=== PATIENT | male | born 1940 | race Hispanic/Latino ===

== ENCOUNTER 2017-12-26 19:16 | Emergency (ER) | payer OTHER, SELFPAY ==
[2017-12-26 19:27] VITALS: BP 197/95; PULSE 72; RESP 20; TEMP 36.3; O2SAT 98
--- NOTE | 2017-12-26 19:35 | DI.RAD.S_ITS ---
PROCEDURE: XR RIBS RT MIN 3V W CXR 1V INDICATIONS: blunt injury TECHNIQUE: 3 views of the right ribs were acquired, along with a single view chest. COMPARISON: None. FINDINGS: Surgical changes and devices: None. Bones and chest wall: No fractures or dislocations. No suspicious bony lesions. Overlying soft tissues appear unremarkable. Lungs and pleura: No pleural effusions or pneumothorax. Lungs appear clear. Mediastinum: Mediastinal contours appear normal. Heart size is normal. IMPRESSION: No displaced right rib fractures visualized. Dictated by: Devyn Yen M.D. on 12/26/2017 at 20:35 Approved by: Devyn Yen M.D. on 12/26/2017 at 20:37
[2017-12-26 21:53] VITALS: BP 180/80; PULSE 68; RESP 18; O2SAT 99
[2017-12-26 23:38] VITALS: BP 167/84; PULSE 62; RESP 16; O2SAT 99
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
== END 2017-12-27 00:31 | disposition home or self-care (01) ==
PROVIDERS: Emergency Provider Emergency Medicine; Family Provider Family Medicine; PCP Family Medicine
DX: S20.229A Contusion of unspecified back wall of thorax, initial encounter (principal); V09.00XA Pedestrian injured in nontraffic accident involving unspecified motor vehicles, initial encounter
CPT/HCPCS: 71101; 99283

== ENCOUNTER → 2018-03-04 12:14 | Outpatient (CLI) | payer OTHER, SELFPAY ==
--- NOTE | 2018-03-04 | DI.CT.S_ITS ---
PROCEDURE: CT CHEST ABD PEL W CON INDICATIONS: PROSTATE CANCER TECHNIQUE: After the administration of oral and intravenous contrast, 5 mm thick sections acquired from the lung apices to the symphysis. 5 mm coronal and sagittal reformats were performed, with additional 7 mm coronal MIP reformats through the lungs. For radiation dose reduction, the following was used: automated exposure control, adjustment of mA and/or kV according to patient size. COMPARISON: [facility], CR, XR RIBS RT MIN 3V W CXR 1V, 12/26/2017, 19:37. FINDINGS: Image quality: Excellent. CHEST: Lungs and pleura: There is apical opacity with partial calcification, probably scar/atelectasis. No acute airspace opacities. No pleural effusions or pneumothorax. Central and peripheral airways appear patent and normal in caliber. Mediastinum: Heart size is normal. No pericardial effusion. No mediastinal or hilar adenopathy by size criteria. Thoracic aorta and central pulmonary arteries are normal in size. Esophagus is normal in caliber. No hiatal hernia. Chest wall: No axillary or supraclavicular adenopathy by size criteria. Thyroid gland is normal. ABDOMEN: Solid organs: There is diffuse hepatic fatty fixation. Liver is normal in size and enhancement. Gallbladder is normal. Biliary system is non dilated. Pancreas enhances normally. Spleen is normal in size and enhancement. No adrenal nodules. Kidneys demonstrate normal size and enhancement, without hydronephrosis. Peritoneum and bowel: There is masslike appearance in duodenum. Bowel loops demonstrate normal wall thickness and caliber. There are scattered colonic diverticula. No arthritic diverticulitis. No free fluid or air. Nodes and vessels: No retroperitoneal or mesenteric adenopathy by size criteria. Aorta and inferior vena cava are normal in size. Mild aortic atherosclerosis. Miscellaneous: No ventral hernias. PELVIS: Genitourinary: Bladder wall thickness is normal. Prostate is enlarged. Miscellaneous: No inguinal hernias or adenopathy. Hydroceles are seen bilaterally in the scrotum. Bones: Bilateral acute/subacute nondisplaced rib fractures are present, involving the 11th and 12th ribs and the left 10th rib.. No suspicious bony lesions. No vertebral body compression fractures. IMPRESSION: 1. Enlarged prostate. 2. No metastatic disease is identified. 3. Masslike appearance in duodenum. Recommend upper endoscopy for further evaluation. 4. Diverticulosis without acute diverticulitis. 5. Hydroceles in scrotum. 6. Bilaterally acute/subacute inferior rib fractures. 7. Hepatic steatosis. Dictated by: Devyn Yen M.D. on 03/04/2018 at 15:58 Approved by: Devyn Yen M.D. on 03/04/2018 at 18:10
== END ==
PROVIDERS: Family Provider Family Medicine; PCP Family Medicine; Visit Provider Urology
DX: C61 Malignant neoplasm of prostate (principal); K31.9 Disease of stomach and duodenum, unspecified; K57.90 Diverticulosis of intestine, part unspecified, without perforation or abscess without bleeding; N43.3 Hydrocele, unspecified; S22.43XA Multiple fractures of ribs, bilateral, initial encounter for closed fracture; K76.0 Fatty (change of) liver, not elsewhere classified
CPT/HCPCS: 71260; 74177; Q9967

== ENCOUNTER 2019-01-08 10:45 | Outpatient (RCR) | payer OTHER, SELFPAY ==
--- NOTE | 2018-10-22 17:22 | PT.OIE ---
Current Diagnoses Malignant neoplasm of prostate (10/17/18) Stress incontinence (female) (male) (10/17/18) Provider Visit Care Team Role Provider Type Christophe Hawthorne Primary Care Provider Non-Staff Specialty: Medical Address: [place], [address] Email: Davon Angel Attending Provider Non-Staff Specialty: Urology Address: [facility] [place], [address] Email: Physical Therapy Initial Evaluation PT-OP-A Visit Information Start: 10/17/18 10:32 Freq: Status: Active Protocol: Document 10/17/18 10:30 [facility] (Rec: 10/17/18 19:28 [facility] [email or web address]) Out-Patient Physical Therapy Visit Information Visit Information Visit Type Initial Evaluation Visit Start Time 10:30 Visit Stop Time 11:15 Total Visit Minutes 45 Visit Number 1 Evaluation Information Evaluation Date 10/17/18 PT-OP-B Current Condition Start: 10/17/18 10:32 Freq: Status: Active Protocol: Document 10/17/18 10:30 [facility] (Rec: 10/21/18 17:41 [facility] [email or web address]) Current Condition History of Current Condition Onset Date 06/07/2019 Current Complaints urinary stress incontinence History of Current Condition 77 year old male referred to PT for pelvic floor strengthening following a robotic prostatectomy 06/07/2018 with complaints of leaking with walking and doing his work at a [employer]. He also reports since surgery he has lost the signal from his bladder that it is time to void so he is voiding just in case every hour throughout the day. He is changing his paid 3-4 times per day and using a poise pad PT-OP-I Pelvic Floor Start: 10/17/18 10:32 Freq: Status: Active Protocol: Document 10/17/18 10:30 [facility] (Rec: 10/22/18 15:58 [facility] [email or web address]) Pelvic Floor Assessment Urine Pelvic Floor Surgery No Other Urinary Symptoms leakage with walking and with standing working as a [employer]. Star also reports he feels as if he has lost the signal to void and is emptying her bladder every hour just in case. Leakage Size Medium Leakage Cause Cough Exercise Lifting Sneeze Leaks Per Day 7 Voiding Frequency every hour Nocturia up to 3 times per night Pads Used In 24 Hours 3-4 Urine Pad Type Depends Contraction Ability Voluntary Contraction Weak Voluntary Relaxation Moderate Comments Pelvic Floor Comments pelvic floor assessment was done externally today with hand placement at the perineum and suprapubic region. Star was performing his pelvic floor with gluteal squeeze and upper abdominal wall tightness. After cueing he demonstrated improved recruitment of his pelvic floor PT-OP-M Strength Start: 10/22/18 16:46 Freq: Status: Active Protocol: Document 10/17/18 10:30 [facility] (Rec: 10/22/18 16:47 [facility] [email or web address]) Trunk Strength Trunk Manual Muscle Testing Flexion 4 Good Core Stabilization weakness of the lower core including Transverse abdominus and pelvic floor PT-OP-Q Treatments Start: 10/17/18 10:32 Freq: Status: Active Protocol: Document 10/17/18 10:30 [facility] (Rec: 10/22/18 15:58 [facility] [email or web address]) Therapeutic Exercises Supine Exercises 2 Supine Exercise Name TA facilitation with a march Side bilateral Reps/Minutes 2 x 10 reps 1 Supine Exercise Name pelvic floor long holds Side bilateral Reps/Minutes 10 second hold time 10 second rest Other Exercises 1 Other Exercise Name quadruped TA facilitation Reps/Minutes x 10 reps PT-OP-T Assessment and Plan Start: 10/17/18 10:32 Freq: Status: Active Protocol: Document 10/17/18 10:30 [facility] (Rec: 10/22/18 15:58 [facility] [email or web address]) Physical Therapy Assessment Rehab Potential Rehabilitation Potential Good Evaluation Complexity Number of Personal Factors/Comorbidities 1-2 Number of Body Systems Impaired 1-2 Clinical Presentation at Evaluation Stable Impairments Impairments Activity Tolerance Functional Activities Strength Other Impairments urinary incontinence Goals Three Impairment Nocturia up to 3 times per night Powder Room Attendant Goal (LTG) Star is able to reduce voids at night to 1xm per night for improved sleep LTG Duration 8 weeks Two Impairment Decreased pelvic floor endurance Short Term Goal (STG) Improve pelvic floor endurance from 4-5 second hold time to 10 second hold time in supine STG Duration 5 weeks One Impairment urinary leakage constant throughout the day but worse with walking/standing Short Term Goal (STG) Star is educated on anterior pelvic floor facilitation and is able to tighten his pelvic floor without posterior gluteal recruitment STG Duration 4 weeks Care Home Goal (LTG) Star reports decreased c/o leakage including being able to stand for work without leakage. He reports decreased pad use from 3-4 pads per day to 0-1 pads per day LTG Duration 8 weeks Assessment Summary Assessment Star presents to physical therapy today with c/o urinary stress incontinence s/p robotic prostatectomy 2017. He reports his greatest leakage occurs with walking and with standing as a [employer]. He also reports that he has lost his signal to void and that he is voiding every hour during the day to make sure he is emptying his bladder. He is voiding up to 3 times per night. Most of the time he wakes up dry. He does report he has been avoiding drinking water throughout the day as he is afraid of leakage. His goals are to be able to run a 5 k without leaking. With examination today Star has weakness in his pelvic floor and transverse abdominal musculature He needed education today on recruiting his anterior pelvic floor and to avoid gluteal substitution. He has limited endurance of 4-5 second hold time only. Today's visit included pelvic floor re-education on anterior pelvic floor recruitment and avoiding downward pressure onto the bladder. He tolerated this well and is a good candidate for PT. Thank you for this referral. Physical Therapy Plan Frequency and Duration Frequency of Treatment 1x/Week Duration of Treatment 8 weeks Plan of Care Start Date 10/17/18 Plan of Care End Date 12/17/18 Therapeutic Interventions Therapeutic Interventions Home Exercise Program Manual Therapy Neuromuscular Re-education Patient/Caregiver Education Self-Care/Home Management Soft Tissue Mobilization Therapeutic Exercises Next Visit Focus/Plan Next Note Type Treatment Note Next Visit Plan Review Home exercises and progress stabilization as tolerated to more upright positions
--- NOTE | 2018-12-10 09:17 | PT.OTN ---
Current Diagnoses Malignant neoplasm of prostate (12/05/18) Stress incontinence (female) (male) (12/05/18) Physical Therapy Treatment Note PT-OP-A Visit Information Start: 10/17/18 10:32 Freq: Status: Active Protocol: Document 10/17/18 10:30 [facility] (Rec: 10/17/18 19:28 [facility] [email or web address]) Out-Patient Physical Therapy Visit Information Visit Information Visit Type Initial Evaluation Visit Start Time 10:30 Visit Stop Time 11:15 Total Visit Minutes 45 Visit Number 1 Evaluation Information Evaluation Date 10/17/18 PT-OP-B Current Condition Start: 10/17/18 10:32 Freq: Status: Active Protocol: Document 10/17/18 10:30 [facility] (Rec: 10/21/18 17:41 [facility] [email or web address]) Current Condition History of Current Condition Onset Date 06/07/2019 Current Complaints urinary stress incontinence History of Current Condition 77 year old male referred to PT for pelvic floor strengthening following a robotic prostatectomy 06/18/19 with complaints of leaking with walking and doing his work at a [employer]. He also reports since surgery he has lost the signal from his bladder that it is time to void so he is voiding just in case every hour throughout the day. He is changing his paid 3-4 times per day and using a poise pad PT-OP-C Subjective Start: 10/17/18 10:32 Freq: Status: Active Protocol: Document 12/05/18 14:30 [facility] (Rec: 12/10/18 09:16 [facility] [email or web address]) OP-PT Subjective Patient Comments Patient Comments Star reports he is frustrated as he has not had a change in his symptoms Patient Reported Progress Same PT-OP-I Pelvic Floor Start: 10/17/18 10:32 Freq: Status: Active Protocol: Document 10/17/18 10:30 [facility] (Rec: 10/22/18 15:58 [facility] [email or web address]) Pelvic Floor Assessment Urine Pelvic Floor Surgery No Other Urinary Symptoms leakage with walking and with standing working as a [employer]. Star also reports he feels as if he has lost the signal to void and is emptying her bladder every hour just in case. Leakage Size Medium Leakage Cause Cough Exercise Lifting Sneeze Leaks Per Day 7 Voiding Frequency every hour Nocturia up to 3 times per night Pads Used In 24 Hours 3-4 Urine Pad Type Depends Contraction Ability Voluntary Contraction Weak Voluntary Relaxation Moderate Comments Pelvic Floor Comments pelvic floor assessment was done externally today with hand placement at the perineum and suprapubic region. Star was performing his pelvic floor with gluteal squeeze and upper abdominal wall tightness. After cueing he demonstrated improved recruitment of his pelvic floor PT-OP-M Strength Start: 10/22/18 16:46 Freq: Status: Active Protocol: Document 10/17/18 10:30 [facility] (Rec: 10/22/18 16:47 [facility] [email or web address]) Trunk Strength Trunk Manual Muscle Testing Flexion 4 Good Core Stabilization weakness of the lower core including Transverse abdominus and pelvic floor PT-OP-Q Treatments Start: 10/17/18 10:32 Freq: Status: Active Protocol: Document 12/05/18 14:30 [facility] (Rec: 12/10/18 09:16 [email or web address] [email or web address]) Therapeutic Exercises Supine Exercises 4 Supine Exercise Name supine ball squeeze with pelvic floor contraction Reps/Minutes x 10 reps 3 Supine Exercise Name pelvic floor quick flicks 2 Supine Exercise Name TA facilitation with a march Side bilateral Reps/Minutes 2 x 10 reps 1 Supine Exercise Name pelvic floor long holds Side bilateral Reps/Minutes 10 second hold time 10 second rest Standing Exercises 1 Standing Exercise Name standing pelvic floor recruitment Other Exercises 2 Other Exercise Name sit-stand with pelvic floor recruitment 1 Other Exercise Name quadruped TA facilitation Reps/Minutes x 10 reps Neuro Re-Education Treatment Other Activities 1 Details re-education on pelvic floor facilitation Comments Star was having a difficult time with pelvic floor recruitment so we worked again today with facilitation of pelvic floor and transverse abdominal muscle recruitment. A mirror was used to avoid valsalva. PT-OP-T Assessment and Plan Start: 10/17/18 10:32 Freq: Status: Active Protocol: Document 12/05/18 14:30 [facility] (Rec: 12/10/18 09:16 [facility] [email or web address]) Physical Therapy Assessment Assessment Summary Assessment Progress has been slow for Star. He does not wish to try EMG biofeedback at this time and had worked on his own for the past 1.5 months. Unfortunatly today when I reviewed his exercises he was pressing out with his abdominal muscles causing a increase in abdominal pressure . We did a lot of review today and NMRE using a mirror to properly recruit the abdominal wall and pelvic floor. He lives on the [facility] so it is difficult for him to make appointments but I did encourage him to at least make one more for review of all established exercises Physical Therapy Plan Frequency and Duration Frequency of Treatment 1x/Week Duration of Treatment 8 weeks Plan of Care Start Date 10/17/18 Plan of Care End Date 12/17/18 Therapeutic Interventions Therapeutic Interventions Home Exercise Program Manual Therapy Neuromuscular Re-education Patient/Caregiver Education Self-Care/Home Management Soft Tissue Mobilization Therapeutic Exercises Next Visit Focus/Plan Next Note Type Treatment Note Next Visit Plan Review home exercises and progress upright functional exercises
--- NOTE | 2019-01-09 18:34 | PT.OTN ---
Current Diagnoses Malignant neoplasm of prostate (01/08/19) Stress incontinence (female) (male) (01/08/19) Physical Therapy Treatment Note PT-OP-A Visit Information Start: 10/17/18 10:32 Freq: Status: Active Protocol: Document 01/08/19 09:45 [facility] (Rec: 01/09/19 18:34 [facility] [email or web address]) Out-Patient Physical Therapy Visit Information Visit Information Visit Type Progress Note Visit Start Time 09:45 Visit Stop Time 10:30 Total Visit Minutes 45 Visit Number 2 PT-OP-B Current Condition Start: 10/17/18 10:32 Freq: Status: Active Protocol: Document 10/17/18 10:30 [facility] (Rec: 10/21/18 17:41 [facility] [email or web address]) Current Condition History of Current Condition Onset Date 06/07/2019 Current Complaints urinary stress incontinence History of Current Condition 77 year old male referred to PT for pelvic floor strengthening following a robotic prostatectomy 06/18/19 with complaints of leaking with walking and doing his work at a [employer]. He also reports since surgery he has lost the signal from his bladder that it is time to void so he is voiding just in case every hour throughout the day. He is changing his paid 3-4 times per day and using a poise pad PT-OP-C Subjective Start: 10/17/18 10:32 Freq: Status: Active Protocol: Document 01/08/19 09:45 [facility] (Rec: 01/09/19 18:34 [facility] [email or web address]) OP-PT Subjective Patient Comments Patient Comments Star reports he is doing better now. He has days where he wears just one pad. He is voiding every 1-2 hours and waking up 1-2xms per night to void. He is waking up dry for the most part Patient Reported Progress Improving PT-OP-I Pelvic Floor Start: 10/17/18 10:32 Freq: Status: Active Protocol: Document 10/17/18 10:30 [facility] (Rec: 10/22/18 15:58 [facility] [email or web address]) Pelvic Floor Assessment Urine Pelvic Floor Surgery No Other Urinary Symptoms leakage with walking and with standing working as a [employer]. Star also reports he feels as if he has lost the signal to void and is emptying her bladder every hour just in case. Leakage Size Medium Leakage Cause Cough Exercise Lifting Sneeze Leaks Per Day 7 Voiding Frequency every hour Nocturia up to 3 times per night Pads Used In 24 Hours 3-4 Urine Pad Type Depends Contraction Ability Voluntary Contraction Weak Voluntary Relaxation Moderate Comments Pelvic Floor Comments pelvic floor assessment was done externally today with hand placement at the perineum and suprapubic region. Star was performing his pelvic floor with gluteal squeeze and upper abdominal wall tightness. After cueing he demonstrated improved recruitment of his pelvic floor PT-OP-M Strength Start: 10/22/18 16:46 Freq: Status: Active Protocol: Document 10/17/18 10:30 [facility] (Rec: 10/22/18 16:47 [facility] [email or web address]) Trunk Strength Trunk Manual Muscle Testing Flexion 4 Good Core Stabilization weakness of the lower core including Transverse abdominus and pelvic floor PT-OP-Q Treatments Start: 10/17/18 10:32 Freq: Status: Active Protocol: Document 01/08/19 09:45 [facility] (Rec: 01/09/19 18:34 [facility] [email or web address]) Therapeutic Exercises Supine Exercises 5 Supine Exercise Name diaphramagic breathing Reps/Minutes x 5 min 4 Supine Exercise Name supine ball squeeze with pelvic floor contraction Reps/Minutes x 10 reps 3 Supine Exercise Name pelvic floor quick flicks Reps/Minutes x 10 reps 2 Supine Exercise Name TA facilitation with a march Side bilateral Reps/Minutes 2 x 10 reps 1 Supine Exercise Name pelvic floor long holds Side bilateral Reps/Minutes 10 second hold time 10 second rest Standing Exercises 1 Standing Exercise Name standing pelvic floor recruitment Other Exercises 2 Other Exercise Name sit-stand with pelvic floor recruitment 1 Other Exercise Name quadruped TA facilitation Reps/Minutes x 10 reps PT-OP-T Assessment and Plan Start: 10/17/18 10:32 Freq: Status: Active Protocol: Document 01/08/19 09:45 [facility] (Rec: 01/09/19 18:34 [facility] [email or web address]) Physical Therapy Assessment Progress Towards Goals Progress Towards Goals Progressing Toward Goals Assessment Summary Assessment Star is making progress now with his pelvic floor and abdominal stabilization exercises. Progress has been slow as he lives on the [facility] and has [place] been seen x 3 visits total [place] is able to recruit his lower abdominal muscles and pelvic floor now without bulging his abdominal wall out. He still tends to hold his breath so we worked on this a great deal today. 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 I have progressed him to strengthening in upright positions. He would benefit from a additional few PT visits to solidify his HEP and work towards the goal of no pads per day Physical Therapy Plan Frequency and Duration Frequency of Treatment 1x/Week Duration of Treatment 8 weeks Plan of Care Start Date 01/08/19 Plan of Care End Date 03/05/19 Therapeutic Interventions Therapeutic Interventions Home Exercise Program Manual Therapy Neuromuscular Re-education Patient/Caregiver Education Self-Care/Home Management Soft Tissue Mobilization Therapeutic Exercises Next Visit Focus/Plan Next Note Type Treatment Note Next Visit Plan Review home exercises and progress upright functional exercises
--- NOTE | 2019-01-09 18:35 | PT.OPPOC ---
Current Diagnoses Malignant neoplasm of prostate (01/08/19) Stress incontinence (female) (male) (01/08/19) Provider Visit Care Team Role Provider Type Christophe Hawthorne Primary Care Provider Non-Staff Specialty: Medical Address: [place], [address] Email: Davon Angel Attending Provider Non-Staff Specialty: Urology Address: [address] [place], [address] Email: Plan Of Care PT-OP-T Assessment and Plan Start: 10/17/18 10:32 Freq: Status: Active Protocol: Document 01/08/19 09:45 [facility] (Rec: 01/09/19 18:34 [facility] [email or web address]) Physical Therapy Assessment Progress Towards Goals Progress Towards Goals Progressing Toward Goals Assessment Summary Assessment Star is making progress now with his pelvic floor and abdominal stabilization exercises. Progress has been slow as he lives on the [facility] and has only been seen x 3 visits total [place] He is able to recruit his lower abdominal muscles and pelvic floor now without bulging his abdominal wall out. He still tends to hold his breath so we worked on this a great deal today. 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 I have progressed him to strengthening in upright positions. He would benefit from a additional few PT visits to solidify his HEP and work towards the goal of no pads per day Physical Therapy Plan Frequency and Duration Frequency of Treatment 1x/Week Duration of Treatment 8 weeks Plan of Care Start Date 01/08/19 Plan of Care End Date 03/05/19 Therapeutic Interventions Therapeutic Interventions Home Exercise Program Manual Therapy Neuromuscular Re-education Patient/Caregiver Education Self-Care/Home Management Soft Tissue Mobilization Therapeutic Exercises Next Visit Focus/Plan Next Note Type Treatment Note Next Visit Plan Review home exercises and progress upright functional exercises Plan of Care Dates Plan of Care Start Date 01/08/19 Plan of Care End Date 03/05/19 Please Sign and Return: I have reviewed this Plan of Care and certify that the skilled therapy services above are required to meet the patient?s needs. Physician Signature Date Printed Name and Credentials Clinical Instructor Signature Printed Name and Credentials
--- NOTE | 2019-02-25 14:29 | PT.OPDS ---
Current Diagnoses Malignant neoplasm of prostate (01/08/19) Stress incontinence (female) (male) (01/08/19) Visit Care Team Role Provider Type Christophe Hawthorne Primary Care Provider Non-Staff Specialty: Medical Address: [place], [address] Email: Davon Angel Attending Provider Non-Staff Specialty: Urology Address: [address] [place] [address] [place], [address] Email: Visit Number Visit Number 2 Discharge Summary PT-OP-B Current Condition Start: 10/17/18 10:32 Freq: Status: Active Protocol: Document 10/17/18 10:30 [facility] (Rec: 10/21/18 17:41 AM[facility] [email or web address]) Current Condition History of Current Condition Onset Date 06/07/2019 Current Complaints urinary stress incontinence History of Current Condition 77 year old male referred to PT for pelvic floor strengthening following a robotic prostatectomy 06/18/19 with complaints of leaking with walking and doing his work at [employer]. He also reports since surgery he has lost the signal from his bladder that it is time to void so he is voiding just in case every hour throughout the day. He is changing his paid 3-4 times per day and using a poise pad PT-OP-C Subjective Start: 10/17/18 10:32 Freq: Status: Active Protocol: Document 01/08/19 09:45 [facility] (Rec: 01/09/19 18:34 AM[facility] [email or web address]) OP-PT Subjective Patient Comments Patient Comments Star reports he is doing better now. He has days where he wears just one pad. He is voiding every 1-2 hours and waking up 1-2xms per night to void. He is waking up dry for the most part Patient Reported Progress Improving PT-OP-I Pelvic Floor Start: 10/17/18 10:32 Freq: Status: Active Protocol: Document 10/17/18 10:30 [facility] (Rec: 10/22/18 15:58 AM[facility] [email or web address]) Pelvic Floor Assessment Urine Pelvic Floor Surgery No Other Urinary Symptoms leakage with walking and with standing working as a [employer]. Star also reports he feels as if he has lost the signal to void and is emptying her bladder every hour just in case. Leakage Size Medium Leakage Cause Cough,Exercise,Lifting,Sneeze Leaks Per Day 7 Voiding Frequency every hour Nocturia up to 3 times per night Pads Used In 24 Hours 3-4 Urine Pad Type Depends Contraction Ability Voluntary Contraction Weak Voluntary Relaxation Moderate Comments Pelvic Floor Comments pelvic floor assessment was done externally today with hand placement at the perineum and suprapubic region. Star was performing his pelvic floor with gluteal squeeze and upper abdominal wall tightness. After cueing he demonstrated improved recruitment of his pelvic floor PT-OP-M Strength Start: 10/22/18 16:46 Freq: Status: Active Protocol: Document 10/17/18 10:30 [facility] (Rec: 10/22/18 16:47 [facility] [email or web address]) Trunk Strength Trunk Manual Muscle Testing Flexion 4 Good Core Stabilization weakness of the lower core including Transverse abdominus and pelvic floor PT-OP-T Assessment and Plan Start: 10/17/18 10:32 Freq: Status: Active Protocol: Document 02/25/19 14:28 [facility] (Rec: 02/25/19 14:28 AM[facility] [email or web address]) Physical Therapy Plan Discharge Physical Therapy Discharge Reasons No Longer Attending PT Discharge Comments Star has been doing better overall with decreased leakage . He had to cx his last visit in PT. He will be discharged at this time to a independent home program. Thank you for this referral.
== END 2019-03-07 08:29 ==
LOC: PHYS 10:45
PROVIDERS: PCP Family Medicine; Visit Provider Student in an Organized Health Care Education/Training Program
DX: C61 Malignant neoplasm of prostate (principal); N39.3 Stress incontinence (female) (male)
CPT/HCPCS: 97110; 97112; 97161

== ENCOUNTER → 2019-03-03 15:19 | Outpatient (CLI) | payer OTHER, SELFPAY ==
--- NOTE | 2019-03-03 | DI.MRI.S_ITS ---
PROCEDURE: MR STROKE Pre- and post-contrast brain MRI, non-contrast brain MR angiogram, pre- and postcontrast neck MR angiogram INDICATIONS: DIZZINESS AND GIDDINESS TECHNIQUE: Brain: Noncontrast axial T1 spin echo, axial T2 fast spin echo, sagittal and axial FLAIR, coronal T2 fast spin echo, axial gradient echo, axial diffusion and ADC through the brain. After the administration of contrast, axial 3D VIBE of the cranial vasculature and brain. Brain MRA: Non-contrast 3-D time of flight MR angiogram, with multiple sbessnl-veomxvsym-dhqrfmxrqj (MIP) reformats performed. Neck MRA: Axial and sagittal TruFISP through the neck. Coronal dynamic MR angiogram during administration of contrast in the arterial and venous phases, with 3-dimenstional cidyquu-wzatxolbe-mmzdlhgwlm (MIP) reformats constructed from subtraction images. COMPARISON: None. FINDINGS: Image quality: Excellent. BRAIN: The ventricular system and cortical sulci demonstrate atrophy, consistent for the patient's stated age. There are areas of increased T2/FLAIR signal intensity within the periventricular and subcortical white matter. There is no acute intra-or extra axial fluid collection. No acute hemorrhage, mass lesion or midline shift. Brainstem is unremarkable. There are no areas of restricted diffusion. Globes are symmetrical. Sinuses are aerated. Mild to moderate bilateral mastoid air cells fluid is present. Osseous structures are intact. BRAIN MR ANGIOGRAM: Anterior circulation: Intracranial internal carotid arteries are normal in size and enhancement. The flow within the paired anterior cerebral arteries is normal and symmetric. The flow within the middle cerebral arteries is normal and symmetric. The anterior communicating artery is seen. No stenoses, occlusions, or aneurysms. Posterior circulation: The visualized portions of the vertebral arteries demonstrate normal caliber, and join to form a normal appearing basilar artery. The flow within the posterior cerebral arteries is normal and symmetric. No stenoses, occlusions, or aneurysms. NECK MR ANGIOGRAM: The origins of the left and right common, right internal and bilateral external carotid arteries demonstrate no areas of hemodynamically significant stenosis, vascular occlusion or aneurysmal dilation. Approximate 50% stenosis is present at the origin of the left internal carotid artery. Origins of the left and right vertebral arteries demonstrate no areas of hemodynamically significant stenosis, vascular occlusion or aneurysmal dilation. Aortic arch demonstrates conventional anatomy. Limited, visualized portions subclavian vasculature are unremarkable. IMPRESSION: 1. No acute intracranial process. 2. Moderate atrophy and chronic microvascular ischemic changes. 3. Approximately 50% stenosis at the origin of the left internal carotid artery. 4. Mild to moderate bilateral mastoid air cells fluid. Recommend correlation of potential mastoiditis. Dictated by: Josselyn Ramos M.D. on 03/03/2019 at 16:35 Approved by: Josselyn Ramos M.D. on 03/03/2019 at 17:08
== END ==
PROVIDERS: PCP Family Medicine; Visit Provider Family Medicine
DX: R42 Dizziness and giddiness (principal); I65.22 Occlusion and stenosis of left carotid artery
CPT/HCPCS: 70548; 70553; A9579